=== PATIENT | female | born 1980 | race Caucasian/White ===

== ENCOUNTER 2019-06-01 11:07 | Emergency (ER) | payer MEDICARE ==
--- NOTE | 2019-06-01 12:59 | XRAY ---
Indication: Thrombus. Two-dimensional sonogram and color Doppler imaging of the major venous vessels of the right upper extremity was performed. Comparison: None There is occluding thrombus in the basilic vein above the elbow, site of PICC line insertion. No thrombus in the remaining visualized right internal jugular, subclavian, axillary, brachial, cephalic, ulnar, and radial veins. Impression: Occluding venous thrombus in the basilic vein. Comment: Preliminary report was given.
--- NOTE | 2019-06-01 13:07 | ERPHSYRPT ---
- History of Present Illness Source: patient Exam Limitations: no limitations Patient Subjective Stated Complaint: pt here to hav epic line looked at, her right arm is swollen and tender since friday, she is getting infusions for osteomylitis. Triage Nursing Assessment: pt alert, walked in, arm swollen with strong radial pulse, Physician History: pt. states that she gets IV vancomycin and zosyn via PICC line on her right arm - states she was diagnosed with osteomyelitis and PICC line was placed on [facility] - states right arm is going red, painful, is sore an swollen - denies fever Occurred: yesterday Method of Injury: unknown Quality: constant Severity of Pain-Max: moderate Severity of Pain-Current: moderate Extremities Pain Location: shoulder: right, elbow: right, forearm: right Modifying Factors: Improves With: nothing Associated Symptoms: none Allergies/Adverse Reactions: No Known Drug Allergies Allergy (Verified 06/01/19 11:15) Home Medications: Aspirin EC 325 mg [Ecotrin 325 MG] 325 mg PO DAILY 05/28/19 [History] Atorvastatin Calcium [Lipitor] 10 mg PO DAILY 05/28/19 [History] Carvedilol 3.125 mg [Coreg 3.125 MG] 3.125 mg PO BID 05/28/19 [History] Clopidogrel Bisulfate 75 mg [PLAVIX 75 MG Tablet] 75 mg PO DAILY 05/28/19 [History] Empagliflozin [Jardiance] 10 mg PO DAILY 05/28/19 [History] Evolocumab [Repatha Syringe] 140 mg SQ WEEKLY 05/28/19 [History] Furosemide 20 mg [Lasix 20 mg] 20 mg PO DAILY 05/28/19 [History] Gabapentin [Neurontin] 600 mg PO HS 05/28/19 [History] Insulin Glargine,Hum.rec.anlog [Basaglar Kwikpen U-100] 35 unit SQ DAILY [History] Insulin Lispro [Humalog] 200 unit SQ DAILY 05/28/19 [History] Levothyroxine Sodium 75 Mcg [Synthroid 75 Mcg] 75 mcg PO DAILY 05/28/19 [ History] Ranolazine [Ranolazine ER] 1,000 mg PO BID 05/28/19 [History] Sacubitril/Valsartan [Entresto 24 mg-26 mg Tablet] 1 each PO BID 05/28/19 [ History] Spironolactone 25 mg [Aldactone 25 MG] 25 mg PO DAILY 05/28/19 [History] Venlafaxine HCl ER 75 mg [Effexor XR 75 MG] 75 mg PO DAILY 05/28/19 [ History] Zolpidem Tartrate 5 mg [Ambien 5 MG Tablet] 5 mg PO HS 05/28/19 [History] Hx Tetanus, Diphtheria Vaccination/Date Given: No Hx Influenza Vaccination/Date Given: No Hx Pneumococcal Vaccination/Date Given: No Immunizations Up to Date: Yes - Review of Systems Constitutional: No Symptoms Eyes: No Symptoms Ears, Nose, & Throat: No Symptoms Respiratory: No Symptoms Cardiac: No Symptoms Abdominal/Gastrointestinal: No Symptoms Genitourinary Symptoms: No Symptoms Musculoskeletal: No Symptoms Skin: Rash Neurological: No Symptoms Psychological: No Symptoms Endocrine: No Symptoms Hematologic/Lymphatic: No Symptoms Immunological/Allergic: No Symptoms All Other Systems: Reviewed and Negative - Past Medical History Pertinent Past Medical History: Yes Neurological History: No Pertinent History ENT History: No Pertinent History Cardiac History: Coronary Artery Disease, High Cholesterol, Myocardial Infarction ([place]) Respiratory History: Asthma Endocrine Medical History: Diabetes Type II, Hypothyroidism Musculoskeletal History: No Pertinent History GI Medical History: No Pertinent History History: No Pertinent History Psycho-Social History: No Pertinent History Female Reproductive Disorders: No Pertinent History - Past Surgical History Past Surgical History: Yes Neuro Surgical History: No Pertinent History Cardiac: Cardiac Catheterization, Cardiac Stent Respiratory: No Pertinent History Gastrointestinal: Cholecystectomy Genitourinary: No Pertinent History Musculoskeletal: Orthopedic Surgery Female Surgical History: No Pertinent History Other Surgical History: tonsillectomy. Defibrillator placement - Social History Smoking Status: Current every day smoker How long have you smoked: 20 years Exposure to second hand smoke: Yes Alcohol Use: Socially Drug Use: none Patient Lives Alone: No Significant Family History: diabetes - Female History Hx Last Menstrual Period: last month Hx Now: No - Nursing Vital Signs Nursing Vital Signs: Pain Scale Pain Intensity 5 - Physical Exam General Appearance: no apparent distress Eyes, Ears, Nose, Throat Exam: normal ENT inspection Neck Exam: normal inspection Cardiovascular/Respiratory Exam: chest non-tender, normal breath sounds, regular rate/rhythm Abdominal Exam: non-tender, soft, no organomegaly Back Exam: normal inspection, normal range of motion Shoulder Exam: normal inspection, non-tender, no evidence of injury Elbow/Forearm Exam: pain, soft tissue tenderness, swelling Wrist Exam: normal inspection, non-tender, no evidence of injury Hand Exam: normal inspection, non-tender, no evidence of injury DTR - Upper Extremity Exam: bicep (R): 4+, bicep (L): 4+, tricep (R): 4+, tricep (L): 4+ Neuro/Tendon Exam: normal sensation Mental Status Exam: alert, oriented x 3, cooperative Skin Exam: pale SpO2 Interpretation: normal O2 Delivery: Room Air Ordered Tests: Active Orders 24 hr Category Date Time Status VENOUS UNILAT/LIMITED EXTREMIT [US] Stat Exams 06/01/19 11:41 Completed - Progress Progress Note: 06/01/19 13:05 PICC line area indurated, erythematous and tendr to palpation - UE USG +venous thrombosis of basilic vein - arm evaluated by radiology for PICC line palcement on left arm- advised difficult access - discussed with [facility]- pt to be transferred - Departure Departure Disposition: Transfer Clinical Impression: PICC line infiltration Condition: Stable Critical Care Time: No Referrals: MILY DAVID MD [Primary Care Provider] -
[2019-06-01 13:18] VITALS: BP 119/80; PULSE 84; O2SAT 95
== END 2019-06-01 13:20 | disposition short-term general hospital (02) ==
LOC: ED 11:07
DX: Z45.2 Encounter for adjustment and management of vascular access device (principal); M79.602 Pain in left arm; M79.89 Other specified soft tissue disorders; Z95.828 Presence of other vascular implants and grafts
CPT/HCPCS: 93971; 99284

== ENCOUNTER 2022-09-18 15:16 | Observation (INO) | payer MEDICARE ==
[2022-09-18] MEDS ORDERED: BENADRYL 50 MG/ML ONE (15:46)
[2022-09-18] MEDS ORDERED: BENADRYL 50 MG/ML IV ONE (15:46)
[2022-09-18] MEDS ORDERED: solu-MEDROL 125 MG, Sterile H2O 10 ml 2 ML IV ONE ×2 (16:30)
[2022-09-18] MEDS ORDERED: Sterile H2O 10 ml IJ ONE ×2 (16:38→23:43)
[2022-09-18] MEDS ORDERED: solu-MEDROL ONE ×2 (16:38→23:43)
--- NOTE | 2022-09-18 16:42 | ERPHSYRPT ---
- History of Present Illness Time Seen by Provider: 09/18/22 16:39 Source: patient Exam Limitations: no limitations Patient Subjective Stated Complaint: "I had a PICC line on the 6th for a bactera I have in my right foot. I'm on some antibiotic for 6 weeks daily at home. The medicine starts with an R. My sister hooks me up for my treatments but I've felt itchy all over and the PICC isn't flushing good. It is kind bloody too." Triage Nursing Assessment: Pt presents to ER due to issues with PICC that was placed at [facility] on 09/12/22. Pt states she is getting antibiotics in PICC daily at home and noticed it is not flushing good and now is itchy all over. Noted dried blood to dressing and various bruising around site. Pt is alert and oriented x 3. Respirations are easy. Denies nausea, vomiting, and diarrhea. Pt believes slight rash is occurring and thinks she's having some sort of reaction to her antibiotics. Is on antibiotics for infection in right foot. Pt denies any further complaints at this time. Physician History: Patient is a 42-year-old female currently on antibiotics for bilateral lower extremity osteomyelitis presents to our ED for evaluation of dysfunctional PICC line and itching. Patient states the PICC line was placed 6 days ago at [facility]. Patient is currently receiving daily and antibiotic infusions through the PICC line. Patient states the infusions are to occur for a period of 6 weeks. Infusions are being done at home by her sister. Patient states that the infusions have been taking progressively more time. She believes the PICC line may be partially occluded. Patient also experience generalized pruritus. Patient believes she may be experiencing some sort of allergic reaction to the antibiotic. The antibiotic patient is currently taking is Rocephin. no shortness of breath. No abdominal pain or tenderness. No nausea or vomiting. No wheezing. Patient denies a history of the same. She voices no other complaints or concerns at this time. Portions of this note were created with voice recognition technology. There may be grammatical, spelling, punctuation or sound alike errors Timing/Duration: today Severity: moderate Modifying Factors: Improves With: nothing Associated Symptoms: denies symptoms Allergies/Adverse Reactions: hydrocodone Adverse Reaction (Mild, Verified 09/18/22 15:34) Itching Home Medications: Aspirin EC 325 mg [Ecotrin 325 MG] 81 mg PO DAILY 05/28/19 [History] Atorvastatin Calcium [Lipitor] 10 mg PO DAILY 05/28/19 [History] Carvedilol 3.125 mg [Coreg 3.125 MG] 3.125 mg PO BID 05/28/19 [History] Clopidogrel Bisulfate [PLAVIX 75 MG Tablet] 75 mg PO DAILY 05/28/19 [History] Empagliflozin [Jardiance] 10 mg PO DAILY 05/28/19 [History] Evolocumab [Repatha Syringe] 140 mg SQ WEEKLY 05/28/19 [History] Insulin Lispro [Humalog] 8 unit SQ AC 05/28/19 [History] Levothyroxine Sodium 75 Mcg [Synthroid 75 Mcg] 75 mcg PO DAILY 05/28/19 [History] Ranolazine [Ranolazine ER] 500 mg PO BID 05/28/19 [History] Sacubitril/Valsartan [Entresto 24 mg-26 mg Tablet] 1 each PO BID 05/28/19 [History] Venlafaxine HCl ER 75 mg [Effexor XR 75 MG] 75 mg PO DAILY 05/28/19 [History] Omeprazole 20 mg PO BID 01/07/20 [History] Ondansetron ODT 4 MG [Zofran Odt 4 mg] 4 mg PO Q6H PRN PRN 01/28/20 [History] Bumetanide 2 tab PO DAILY 05/25/21 [History] Insulin Glargine,Hum.rec.anlog [Tutu Hobbs] 35 unit SQ DAILY 05/25/21 [History] Hx Tetanus, Diphtheria Vaccination/Date Given: Yes Hx Influenza Vaccination/Date Given: Yes Hx Pneumococcal Vaccination/Date Given: No Immunizations Up to Date: No Travel Risk - International Travel Have you traveled outside of the country in past 3 weeks: No - Coronavirus Screening Are you exhibiting any of the following symptoms?: No Close contact with a COVID-19 positive Pt in past 14-21 Days: No - Vaccine Status Have you recieved a Covid-19 vaccination: No - Review of Systems Constitutional: No Symptoms, No Fever, No Chills Eyes: No Symptoms Ears, Nose, & Throat: No Symptoms Respiratory: No Symptoms, No Cough, No Dyspnea Cardiac: No Symptoms, No Chest Pain, No Edema, No Syncope Abdominal/Gastrointestinal: No Symptoms, No Abdominal Pain, No Nausea, No Vomiting, No Diarrhea Genitourinary Symptoms: No Symptoms, No Dysuria Musculoskeletal: No Symptoms, No Back Pain, No Neck Pain Skin: No Symptoms, No Rash Neurological: No Symptoms, No Dizziness, No Focal Weakness, No Sensory Changes Psychological: No Symptoms Endocrine: No Symptoms Hematologic/Lymphatic: No Symptoms Immunological/Allergic: No Symptoms All Other Systems: Reviewed and Negative - Past Medical History Pertinent Past Medical History: Yes Neurological History: Peripheral Neuropathy, Other ENT History: No Pertinent History Cardiac History: Myocardial Infarction ([place]) Respiratory History: Asthma Endocrine Medical History: Diabetes Type II, Hypothyroidism Musculoskeletal History: Other GI Medical History: No Pertinent History History: No Pertinent History Psycho-Social History: No Pertinent History Female Reproductive Disorders: No Pertinent History Other Medical History: Hydrocephalus, not a candidate for a shunt. Had a "widowmaker" in Feb 25, 2015. Defibrillator placed. Osteomyelitis in the L foot and IV antibiotics, had wound care for 3-4 months back in 04/28. gastrophoresis - Past Surgical History Past Surgical History: Yes Neuro Surgical History: No Pertinent History Cardiac: Cardiac Catheterization, Cardiac Stent Respiratory: No Pertinent History Gastrointestinal: Cholecystectomy Genitourinary: No Pertinent History Musculoskeletal: Orthopedic Surgery Female Surgical History: No Pertinent History Other Surgical History: tonsillectomy. 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,3 TOES ON RIGHT FOOT AND 1/3 OF FOOT AMPUTATED - Social History Smoking Status: Current every day smoker How long have you smoked: 25 years Exposure to second hand smoke: No Alcohol Use: Socially Drug Use: none Patient Lives Alone: No Significant Family History: diabetes - Female History Hx Last Menstrual Period: 09/18/22 Hx Now: No - Nursing Vital Signs Nursing Vital Signs: Initial Vital Signs Pulse Rate 92 H 09/18/22 15:26 Respiratory Rate 16 09/18/22 15:26 Blood Pressure 123/86 09/18/22 15:26 O2 Sat by Pulse Oximetry 98 09/18/22 15:26 Pain Scale Pain Intensity 0 - Physical Exam General Appearance: no apparent distress, alert, other (Patient sitting up in bed. She is itching.) Eye Exam: PERRL/EOMI, eyes nml inspection Ears, Nose, Throat Exam: normal ENT inspection, TMs normal, pharynx normal, moist mucous membranes Neck Exam: normal inspection, non-tender, supple, full range of motion Respiratory Exam: normal breath sounds, lungs clear, respiratory distress, airway intact Cardiovascular Exam: regular rate/rhythm, normal heart sounds, normal peripheral pulses Gastrointestinal/Abdomen Exam: soft, normal bowel sounds, No tenderness, No mass Back Exam: normal inspection, normal range of motion, No CVA tenderness, No vertebral tenderness Extremity Exam: normal inspection, normal range of motion, pelvis stable, other (Right upper extremity PICC line) Neurologic Exam: alert, oriented x 3, cooperative, normal mood/affect, nml cerebellar function, nml station & gait, sensation nml, No motor deficits Skin Exam: normal color, warm, dry, No rash Lymphatic Exam: No adenopathy SpO2 Interpretation: normal SpO2: 98 O2 Delivery: Room Air - Course Nursing assessment & vital signs reviewed: Yes Ordered Tests: Active Orders 24 hr Category Date Time Status IV Insertion STAT Care 09/18/22 16:36 Active CBC W DIFF Stat Lab 09/18/22 16:30 Completed CMP Stat Lab 09/18/22 16:30 Completed Medication Summary Discontinued Medications Generic Name Dose Route Start Last Admin Trade Name Aamirq PRN Reason Stop Dose Admin Methylprednisolone Sodium 0 mg 09/18/22 16:30 09/18/22 16:39 Succinate 125 mg/ Sterile IV 09/18/22 16:31 125 mg Water 2 ml STAT ONE Administration Diphenhydramine HCl 50 mg 09/18/22 15:46 09/18/22 15:51 Diphenhydramine Hcl 50 Mg/Ml Vial IV 09/18/22 15:47 Not Given STAT ONE Diphenhydramine HCl Confirm 09/18/22 15:46 Diphenhydramine Hcl 50 Mg/Ml Vial Administered 09/18/22 15:47 Dose 50 mg .ROUTE .STK-MED ONE Methylprednisolone Sodium Succinate Confirm 09/18/22 16:38 Methylprednis Sod Succ 125 Mg/2 Ml Vial Administered 09/18/22 16:39 Dose 125 mg .ROUTE .STK-MED ONE Sterile Water Confirm 09/18/22 16:38 Water For Injection,Sterile 10 Ml Vial Administered 09/18/22 16:39 Dose 10 ml IJ .STK-MED ONE Lab/Rad Data: Laboratory Result Diagrams 09/18/22 16:30 09/18/22 16:30 Laboratory Results 09/18/22 09/18/22 09/18/22 Range/Units 16:40 16:30 16:30 WBC 7.5 (4.0-10.5) x10^3/uL RBC 3.85 L (4.1-5.4) x10^6/uL Hgb 9.2 L (12.0-16.0) g/dL Hct 31.0 L (35-47) % MCV 80.5 (78-100) fL MCH 23.9 L (26-32) pg MCHC 29.7 L (32-36) g/dL RDW 17.4 H (11.5-14.0) % Plt Count 237 (150-450) x10^3/uL MPV 11.0 (7.5-11.0) fL Gran % 70.0 H (36.0-66.0) % Immature Gran % (Auto) 0.5 H (0.00-0.4) % Nucleat RBC Rel Count 0.3 H (0.00-0.1) % Eos # (Auto) 0.14 (0-0.5) x10^3/uL Immature Gran # (Auto) 0.04 H (0.00-0.03) x10^3u/L Absolute Lymphs (auto) 1.27 (1.0-4.6) x10^3/uL Absolute Monos (auto) 0.75 (0.0-1.3) x10^3/uL Absolute Nucleated RBC 0.02 H (0.00-0.01) x10^3u/L Lymphocytes % 16.9 L (24.0-44.0) % Monocytes % 10.0 (0.0-12.0) % Eosinophils % 1.9 (0.00-5.0) % Basophils % 0.7 (0.0-0.4) % Absolute Granulocytes 5.28 (1.4-6.9) x10^3/uL Basophils # 0.05 (0-0.4) x10^3/uL Sodium 137 (137-145) mmol/L Potassium 3.6 (3.5-5.1) mmol/L Chloride 101 (98-107) mmol/L Carbon Dioxide 27 (22-30) mmol/L Anion Gap 12.2 (5-15) MEQ/L BUN 24 H (7-17) mg/dL Creatinine 1.44 H (0.52-1.04) mg/dL Estimated GFR 42.2 ML/MIN Glucose 160 H (74-106) mg/dL Calcium 8.3 L (8.4-10.2) mg/dL Total Bilirubin 1.00 (0.2-1.3) mg/dL AST 31 (14-36) U/L ALT 28 (0-35) U/L Alkaline Phosphatase 228 H (38-126) U/L Serum Total Protein 6.4 (6.3-8.2) g/dL Albumin 3.2 L (3.5-5.0) g/dL Influenza Type A Ag NEGATIVE (NEGATIVE) Influenza Type B Ag NEGATIVE (NEGATIVE) RSV (PCR) NEGATIVE (NEGATIVE) SARS-CoV-2 (PCR) NEGATIVE (NEGATIVE) - Progress Progress: improved Progress Note: Case discussed with Dr. Rodney who accepts admission to observation. Patient will be admitted to remove dysfunctional PICC line and replace PICC catheter. PICC line needed to treat lower extremity osteomyelitis. Plan of care discussed with patient. She agrees to admission [facility] for further evaluation and treatment. Portions of this note were created with voice recognition technology. There may be grammatical, spelling, punctuation or sound alike errors 09/18/22 16:35 Laboratory work-up completed. CBC CMP ordered. CBC reveals a hemoglobin of 9.2. Normocytic anemia. CMP reveals a BUN and creatinine of 24 and 1.44. Otherwise no significant findings. COVID test negative. Patient received Benadryl and steroid for pruritus. Patient states she feels somewhat improved. Patient received a dose of Pepcid prior to going up to the floor. Plan is to replace PICC line tomorrow. Possibly change antibiotic as patient's pruritus may be due to her antibiotic. 42-year-old female history of diabetes bilateral lower extremity osteomyelitis presents currently on daily infusions of Rocephin to treat foot osteomyelitis. PICC line has malfunction. Patient not experiencing the pruritus. Patient's problem is acute. Patient's problem is moderate. Symptoms are acute and complicated with systemic manifestations. Symptoms are new with uncertain prognosis. No critical care time. Complexity of data reviewed and analyzed is moderate. Patient served as an independent historian. Testing ordered. Testing reviewed and analyzed by Dr. Bentley. Management discussed with Dr. David patient's primary care doctor who advised admission. Patient agreed to admission to [facility] for further evaluation and treatment. Portions of this note were created with voice recognition technology. There may be grammatical, spelling, punctuation or sound alike errors 09/18/22 18:[address] Edmar Will see patient in: hospital (observation) Counseled pt/family regarding: lab results, diagnosis, rad results - Departure Departure Disposition: Observation Clinical Impression: Occluded PICC line, Pruritus Condition: Stable Critical Care Time: No Referrals: MILY DAVID MD [Primary Care Provider] - Follow up/PCP as directed Additional Instructions: Discharge/Care Plan TUTUSEPTEMBER JERRICA was seen on 09/18/22 in the Emergency Room. The patient was counseled regarding Diagnosis,Lab results, Imaging studies, need for follow up and when to return to the Emergency Room. Prescriptions given: Discharge Note I have spoken with the patient and/or caregivers. I have explained the patient's condition, diagnosis and treatment plan based on the information available to me at this time. I have answered the patient's and/or caregiver's questions and addressed any concerns. The patient and/or caregivers have as good understanding of the patient's diagnosis, condition and treatment plan as can be expected at this point. The vital signs have been stable. The patient's condition is stable and appropriate for discharge from the emergency department. The patient will pursue further outpatient evaluation with the primary care physician or other designated or consulting physician as outlined in the discharge instructions. The patient and/or caregivers are agreeable to this plan of care and follow-up instructions have been explained in detail. The patient and/or caregivers have received these instruction. The patient/and or caregivers are aware that any significant change in condition or worsening of symptoms should prompt an immediate return to this or the closest emergency department or call 911.
[2022-09-18 17:05] LABS: Absolute Neutrophil Ct (ANC) 5.28 x10^3/uL (1.4-6.9); BASOPHIL % 0.7 % (0.0-0.4); Basophil (Absolute #) 0.05 x10^3/uL (0-0.4); Eosinophil % 1.9 % (0.00-5.0); Eosinophil (Absolute #) 0.14 x10^3/uL (0-0.5); Hemoglobin 9.2 g/dL (12.0-16.0); IMMATURE GRAN # 0.04 x10^3u/L (0.00-0.03); IMMATURE GRAN % 0.5 % (0.00-0.4); Lymphocyte (Absolute #) 1.27 x10^3/uL (1.0-4.6); Lymphocytes % 16.9 % (24.0-44.0); Mean Cell Volume 80.5 fL (78-100); Mean Corpuscular Hemoglobin 23.9 pg (26-32); Mean Corpuscular Hgb Concent. 29.7 g/dL (32-36); Monocyte (Absolute #) 0.75 x10^3/uL (0.0-1.3); NUCLEATED RBC # 0.02 x10^3u/L (0.00-0.01); NUCLEATED RBC % 0.3 % (0.00-0.1); Platelet Count 237 x10^3/uL (150-450); Red Blood Count 3.85 x10^6/uL (4.1-5.4); Red Cell Distribution Width 17.4 % (11.5-14.0); White Blood Count 7.5 x10^3/uL (4.0-10.5)
[2022-09-18 17:39] LABS: ALBUMIN 3.2 g/dL (3.5-5.0); ANION GAP 12.2 MEQ/L (5-15); Calcium 8.3 mg/dL (8.4-10.2); Creatinine 1 1.44 mg/dL (0.52-1.04); EST GLOMERULAR FILTRATION RATE 42.2 ML/MIN; Potassium 3.6 mmol/L (3.5-5.1); Total Protein 6.4 g/dL (6.3-8.2)
[2022-09-18 17:46] LABS: INFLUENZA A NEGATIVE (NEGATIVE); INFLUENZA B NEGATIVE (NEGATIVE); RESPIRATORY SYNCTIAL VIRUS NEGATIVE (NEGATIVE); SARS-CoV-2 Xpert Express NEGATIVE (NEGATIVE)
[2022-09-18] MEDS ORDERED: Pepcid 20 MG VIAL IV STA (18:05)
[2022-09-18] MEDS ORDERED: Pepcid 20 MG VIAL IV ONE (18:07)
[2022-09-18] MEDS: Ranexa 500 MG PO SCH (22:01)
[2022-09-18] MEDS: Coreg 3.125 MG PO SCH (22:01)
[2022-09-18] MEDS: Protonix 40MG Tablet PO SCH (22:01)
[2022-09-18] MEDS: solu-MEDROL 60 MG, Sterile H2O 10 ml 2 ML IV SCH ×2 (23:45)
[2022-09-19 05:27] LABS: Absolute Neutrophil Ct (ANC) 5.54 x10^3/uL (1.4-6.9); BASOPHIL % 0.2 % (0.0-0.4); Basophil (Absolute #) 0.01 x10^3/uL (0-0.4); Eosinophil (Absolute #) 0 x10^3/uL (0-0.5); Hematocrit 33.9 % (35-47); Hemoglobin 9.8 g/dL (12.0-16.0); IMMATURE GRAN # 0.03 x10^3u/L (0.00-0.03); IMMATURE GRAN % 0.5 % (0.00-0.4); Lymphocyte (Absolute #) 0.66 x10^3/uL (1.0-4.6); Lymphocytes % 10.4 % (24.0-44.0); Mean Cell Volume 81.3 fL (78-100); Mean Corpuscular Hemoglobin 23.5 pg (26-32); Mean Corpuscular Hgb Concent. 28.9 g/dL (32-36); Mean Platelet Volume 10.3 fL (7.5-11.0); Monocyte (Absolute #) 0.08 x10^3/uL (0.0-1.3); Monocytes % 1.3 % (0.0-12.0); Neutrophil % 87.6 % (36.0-66.0); Platelet Count 195 x10^3/uL (150-450); Red Blood Count 4.17 x10^6/uL (4.1-5.4); Red Cell Distribution Width 17.5 % (11.5-14.0); White Blood Count 6.3 x10^3/uL (4.0-10.5)
[2022-09-19 05:47] LABS: ANION GAP 13.8 MEQ/L (5-15); Calcium 8.3 mg/dL (8.4-10.2); Creatinine 1 1.07 mg/dL (0.52-1.04); EST GLOMERULAR FILTRATION RATE 59.5 ML/MIN; Potassium 3.8 mmol/L (3.5-5.1); Total Protein 6.1 g/dL (6.3-8.2)
[2022-09-19] MEDS ORDERED: Sterile H2O 10 ml IJ ONE (06:53)
[2022-09-19] MEDS ORDERED: solu-MEDROL ONE (06:53)
[2022-09-19] MEDS: solu-MEDROL 60 MG, Sterile H2O 10 ml 2 ML IV SCH ×6 (06:59→18:26)
[2022-09-19 08:15] LABS: Slide Review 1 YES
[2022-09-19] MEDS: HUMALOG SQ SCH ×3 (08:52→17:09)
[2022-09-19] MEDS: Lantus Insulin SQ SCH (08:52)
[2022-09-19] MEDS: Protonix 40MG Tablet PO SCH ×2 (09:29→20:35)
[2022-09-19] MEDS: Ranexa 500 MG PO SCH ×2 (09:30→20:36)
[2022-09-19] MEDS: Coreg 3.125 MG PO SCH ×2 (09:30→20:35)
[2022-09-19] MEDS ORDERED: INSULIN GLARGINE HUM REC ANLOG 300 UNIT/ML SQ SCH (10:00)
[2022-09-19] MEDS ORDERED: INSUL SQ SCH (10:00)
[2022-09-19] MEDS ORDERED: [UNRECOGNIZED DRUG - OTHER] SQ SCH (10:00)
--- NOTE | 2022-09-19 10:18 | PCM.HP ---
History of Present Illness - Chief Complaint Chief Complaint: PICC line is clogged History of Present Illness: is a 42 year old female currently on antibiotics for bilateral lower extremity osteomyelitis presents to our ED for evaluation of dysfunctional PICC line and itching. Patient states the PICC line was placed 6 days ago at [facility]. Patient is currently receiving daily and antibiotic infusions through the PICC line. Patient states the infusions are to occur for a period of 6 weeks. Infusions are being done at home by her sister. Patient states that the infusions have been taking progressively more time. She believes the PICC line may be partially occluded. Patient also experience generalized pruritus. Patient believes she may be experiencing some sort of allergic reaction to the antibiotic. The antibiotic patient is currently taking is Rocephin. no s hortness of breath. No abdominal pain or tenderness. No nausea or vomiting. No wheezing. Patient denies a history of the same. She voices no other complaints or concerns at this time. - Review of Systems Constitutional: No Fever, No Chills Eyes: No Symptoms Ears, Nose, & Throat: No Symptoms Respiratory: No Cough, No Short Of Breath Cardiac: No Chest Pain, No Edema, No Syncope Abdominal/Gastrointestinal: No Abdominal Pain, No Nausea, No Vomiting, No Diarrhea Genitourinary Symptoms: No Dysuria Musculoskeletal: No Back Pain, No Neck Pain Skin: No Rash Neurological: No Dizziness, No Focal Weakness, No Sensory Changes Psychological: No Symptoms Endocrine: No Symptoms Hematologic/Lymphatic: No Symptoms Immunological/Allergic: No Symptoms Medications & Allergies Home Medications: Home Medication List Aspirin EC 325 mg [Ecotrin 325 MG] 81 mg PO DAILY 05/28/19 [History Confirmed 09/18/22] Atorvastatin Calcium [Lipitor] 10 mg PO DAILY 05/28/19 [History Confirmed 09/18/22] Carvedilol 3.125 mg [Coreg 3.125 MG] 3.125 mg PO BID 05/28/19 [History Confirmed 09/18/22] Clopidogrel Bisulfate [PLAVIX 75 MG Tablet] 75 mg PO DAILY 05/28/19 [History Confirmed 09/18/22] Empagliflozin [Jardiance] 10 mg PO DAILY 05/28/19 [History Confirmed 09/18/22] Evolocumab [Repatha Syringe] 140 mg SQ WEEKLY 05/28/19 [History Confirmed 09/18/22] Insulin Lispro [Humalog] 8 unit SQ AC 05/28/19 [History Confirmed 09/18/22] Levothyroxine Sodium 75 Mcg [Synthroid 75 Mcg] 75 mcg PO DAILY 05/28/19 [History Confirmed 09/18/22] Ranolazine [Ranolazine ER] 500 mg PO BID 05/28/19 [History Confirmed 09/18/22] Sacubitril/Valsartan [Entresto 24 mg-26 mg Tablet] 1 each PO BID 05/28/19 [History Confirmed 09/18/22] Venlafaxine HCl ER 75 mg [Effexor XR 75 MG] 75 mg PO DAILY 05/28/19 [Hist ory Confirmed 09/18/22] Omeprazole 20 mg PO BID 01/07/20 [History Confirmed 09/18/22] Ondansetron ODT 4 MG [Zofran Odt 4 mg] 4 mg PO Q6H PRN PRN 01/28/20 [History Confirmed 09/18/22] Bumetanide 1 tab PO DAILY 05/25/21 [History Confirmed 09/18/22] Insulin Glargine,Hum.rec.anlog [Tutu Hobbs] 35 unit SQ DAILY 05/25/21 [History Confirmed 09/18/22] Allergies/Adverse Reactions: Allergies Allergy/AdvReac Type Severity Reaction Status Date / Time ceftriaxone [From Rocephin] Allergy Verified 09/18/22 18:08 hydrocodone AdvReac Mild Itching Verified 09/18/22 15:34 - Past Medical History Past Medical History: Yes Neurological History: Peripheral Neuropathy, Other ENT History: No Pertinent History Cardiac History: Myocardial Infarction (AR) Respiratory History: Asthma Endocrine Medical History: Diabetes Type II, Hypothyroidism Musculoskelatal History: Other GI Medical History: No Pertinent History History: No Pertinent History Pyscho-Social History: No Pertinent History Reproductive Disorders: No Pertinent History Comment: Hydrocephalus, not a candidate for a shunt. Had a "widowmaker" in Feb 25, 2015. Defibrillator placed. Osteomyelitis in the L foot and IV antibiotics, had wound care for 3-4 months back in 04/28. gastrophoresis - Female History Hx Last Menstrual Period: 09/18/22 Are you now?: No - Past Surgical History Past Surgical History: Yes Neuro Surgical History: No Pertinent History Cardiac History: Cardiac Catheterization, Cardiac Stent Respiratory Surgery: No Pertinent History GI Surgical History: Cholecystectomy Genitourinary Surgical Hx: No Pertinent History Musculskeletal Surgical Hx: Orthopedic Surgery Female Surgical History: No Pertinent History Other Surgical History: tonsillectomy. 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,3 TOES ON RIGHT FOOT AND 1/3 OF FOOT AMPUTATED - Social History Smoking Status: Current every day smoker How long have you smoked: 25 years Exposure to second hand smoke: No Alcohol: None Drug Use: none Significant Family History: diabetes - Physical Exam Vital Signs: Vital Signs - 24 hr Temp Pulse Resp BP Pulse Ox 09/19/22 07:54 96.6 F 70 16 129/78 97 09/19/22 03:57 97.6 F 80 18 132/94 99 09/19/22 00:00 97.6 F 72 18 128/78 96 09/18/22 22:02 96 H 133/79 98 09/18/22 18:12 98 09/18/22 17:53 96 H 16 133/79 96 09/18/22 15:26 92 H 16 123/86 98 General Appearance: no apparent distress, alert Neurologic Exam: alert, oriented x 3, cooperative, normal mood/affect, nml cerebellar function, nml station & gait, sensation nml, No motor deficits Eye Exam: PERRL/EOMI, eyes nml inspection Ears, Nose, Throat Exam: normal ENT inspection, TMs normal, pharynx normal, moist mucous membranes Neck Exam: normal inspection, non-tender, supple, full range of motion Respiratory Exam: normal breath sounds, lungs clear, No respiratory distress Cardiovascular Exam: regular rate/rhythm, normal heart sounds, normal peripheral pulses Gastrointestinal/Abdomen Exam: soft, normal bowel sounds, No tenderness, No mass Back Exam: normal inspection, normal range of motion, No CVA tenderness, No vertebral tenderness Extremity Exam: normal inspection, normal range of motion, pelvis stable Skin Exam: normal color, warm, dry, No rash Lymphatic Exam: No adenopathy Results - Labs Lab/Micro Results: Lab Results-Last 24 Hours 04/12/23 04/12/23 04/12/23 Range/Units 16:30 16:30 16:40 WBC 7.5 (4.0-10.5) x10^3/uL RBC 3.85 L (4.1-5.4) x10^6/uL Hgb 9.2 L (12.0-16.0) g/dL Hct 31.0 L (35-47) % MCV 80.5 (78-100) fL MCH 23.9 L (26-32) pg MCHC 29.7 L (32-36) g/dL RDW 17.4 H (11.5-14.0) % Plt Count 237 (150-450) x10^3/uL MPV 11.0 (7.5-11.0) fL Gran % 70.0 H (36.0-66.0) % Immature Gran % (Auto) 0.5 H (0.00-0.4) % Nucleat RBC Rel Count 0.3 H (0.00-0.1) % Eos # (Auto) 0.14 (0-0.5) x10^3/uL Immature Gran # (Auto) 0.04 H (0.00-0.03) x10^3u/L Absolute Lymphs (auto) 1.27 (1.0-4.6) x10^3/uL Absolute Monos (auto) 0.75 (0.0-1.3) x10^3/uL Absolute Nucleated RBC 0.02 H (0.00-0.01) x10^3u/L Lymphocytes % 16.9 L (24.0-44.0) % Monocytes % 10.0 (0.0-12.0) % Eosinophils % 1.9 (0.00-5.0) % Basophils % 0.7 (0.0-0.4) % Absolute Granulocytes 5.28 (1.4-6.9) x10^3/uL Basophils # 0.05 (0-0.4) x10^3/uL Sodium 137 (137-145) mmol/L Potassium 3.6 (3.5-5.1) mmol/L Chloride 101 (98-107) mmol/L Carbon Dioxide 27 (22-30) mmol/L Anion Gap 12.2 (5-15) MEQ/L BUN 24 H (7-17) mg/dL Creatinine 1.44 H (0.52-1.04) mg/dL Estimated GFR 42.2 ML/MIN Glucose 160 H (74-106) mg/dL POC Glucometer (74 to 106) mg/dL Calcium 8.3 L (8.4-10.2) mg/dL Total Bilirubin 1.00 (0.2-1.3) mg/dL AST 31 (14-36) U/L ALT 28 (0-35) U/L Alkaline Phosphatase 228 H (38-126) U/L Serum Total Protein 6.4 (6.3-8.2) g/dL Albumin 3.2 L (3.5-5.0) g/dL Influenza Type A Ag NEGATIVE (NEGATIVE) Influenza Type B Ag NEGATIVE (NEGATIVE) RSV (PCR) NEGATIVE (NEGATIVE) SARS-CoV-2 (PCR) NEGATIVE (NEGATIVE) Slides for Path Review 09/18/22 09/19/22 09/19/22 Range/Units 21:44 04:50 04:50 WBC 6.3 (4.0-10.5) x10^3/uL RBC 4.17 (4.1-5.4) x10^6/uL Hgb 9.8 L (12.0-16.0) g/dL Hct 33.9 L (35-47) % MCV 81.3 (78-100) fL MCH 23.5 L (26-32) pg MCHC 28.9 L (32-36) g/dL RDW 17.5 H (11.5-14.0) % Plt Count 195 (150-450) x10^3/uL MPV 10.3 (7.5-11.0) fL Gran % 87.6 H (36.0-66.0) % Immature Gran % (Auto) 0.5 H (0.00-0.4) % Nucleat RBC Rel Count 0.0 (0.00-0.1) % Eos # (Auto) 0 (0-0.5) x10^3/uL Immature Gran # (Auto) 0.03 (0.00-0.03) x10^3u/L Absolute Lymphs (auto) 0.66 L (1.0-4.6) x10^3/uL Absolute Monos (auto) 0.08 (0.0-1.3) x10^3/uL Absolute Nucleated RBC 0.00 (0.00-0.01) x10^3u/L Lymphocytes % 10.4 L (24.0-44.0) % Monocytes % 1.3 (0.0-12.0) % Eosinophils % 0.0 (0.00-5.0) % Basophils % 0.2 (0.0-0.4) % Absolute Granulocytes 5.54 (1.4-6.9) x10^3/uL Basophils # 0.01 (0-0.4) x10^3/uL Sodium 134 L (137-145) mmol/L Potassium 3.8 (3.5-5.1) mmol/L Chloride 103 (98-107) mmol/L Carbon Dioxide 22 (22-30) mmol/L Anion Gap 13.8 (5-15) MEQ/L BUN 26 H (7-17) mg/dL Creatinine 1.07 H (0.52-1.04) mg/dL Estimated GFR 59.5 ML/MIN Glucose 222 H (74-106) mg/dL POC Glucometer 192 H (74 to 106) mg/dL Calcium 8.3 L (8.4-10.2) mg/dL Total Bilirubin 1.00 (0.2-1.3) mg/dL AST 24 (14-36) U/L ALT 27 (0-35) U/L Alkaline Phosphatase 231 H (38-126) U/L Serum Total Protein 6.1 L (6.3-8.2) g/dL Albumin 3.0 L (3.5-5.0) g/dL Influenza Type A Ag (NEGATIVE) Influenza Type B Ag (NEGATIVE) RSV (PCR) (NEGATIVE) SARS-CoV-2 (PCR) (NEGATIVE) Slides for Path Review YES 09/19/22 Range/Units 07:26 WBC (4.0-10.5) x10^3/uL RBC (4.1-5.4) x10^6/uL Hgb (12.0-16.0) g/dL Hct (35-47) % MCV (78-100) fL MCH (26-32) pg MCHC (32-36) g/dL RDW (11.5-14.0) % Plt Count (150-450) x10^3/uL MPV (7.5-11.0) fL Gran % (36.0-66.0) % Immature Gran % (Auto) (0.00-0.4) % Nucleat RBC Rel Count (0.00-0.1) % Eos # (Auto) (0-0.5) x10^3/uL Immature Gran # (Auto) (0.00-0.03) x10^3u/L Absolute Lymphs (auto) (1.0-4.6) x10^3/uL Absolute Monos (auto) (0.0-1.3) x10^3/uL Absolute Nucleated RBC (0.00-0.01) x10^3u/L Lymphocytes % (24.0-44.0) % Monocytes % (0.0-12.0) % Eosinophils % (0.00-5.0) % Basophils % (0.0-0.4) % Absolute Granulocytes (1.4-6.9) x10^3/uL Basophils # (0-0.4) x10^3/uL Sodium (137-145) mmol/L Potassium (3.5-5.1) mmol/L Chloride (98-107) mmol/L Carbon Dioxide (22-30) mmol/L Anion Gap (5-15) MEQ/L BUN (7-17) mg/dL Creatinine (0.52-1.04) mg/dL Estimated GFR ML/MIN Glucose (74-106) mg/dL POC Glucometer TNP (74 to 106) mg/dL Calcium (8.4-10.2) mg/dL Total Bilirubin (0.2-1.3) mg/dL AST (14-36) U/L ALT (0-35) U/L Alkaline Phosphatase (38-126) U/L Serum Total Protein (6.3-8.2) g/dL Albumin (3.5-5.0) g/dL Influenza Type A Ag (NEGATIVE) Influenza Type B Ag (NEGATIVE) RSV (PCR) (NEGATIVE) SARS-CoV-2 (PCR) (NEGATIVE) Slides for Path Review - Other Procedures and Tests Respiratory Therapy 09/18/22 22:21 Smoking Cessation Education ONCE Assessment/Plan (1) Diabetic foot infection Current Visit: Yes Status: Acute Assessment & Plan: Chief Complaint Diagnosis Malfunctioning PICC line, pruritus Allergies Allergy/AdvReac Type Severity Reaction Status Date / Time ceftriaxone [From Rocephin] Allergy Verified 09/18/22 18:08 hydrocodone AdvReac Mild Itching Verified 09/18/22 15:34 Vital Signs (Last 24 hours) Temp Pulse Resp BP Pulse Ox 09/19/22 07:54 96.6 F 70 16 129/78 97 09/19/22 03:57 97.6 F 80 18 132/94 99 09/19/22 00:00 97.6 F 72 18 128/78 96 09/18/22 22:02 96 H 133/79 98 09/18/22 18:12 98 09/18/22 17:53 96 H 16 133/79 96 09/18/22 15:26 92 H 16 123/86 98 Current Medications Generic Name Dose Route Start Last Admin Trade Name Freq PRN Reason Stop Dose Admin Carvedilol 3.125 mg 09/18/22 22:00 09/19/22 09:30 Carvedilol 3.125 Mg Tablet PO 10/18/22 21:59 3.125 mg BID FER Administration Methylprednisolone Sodium 0 mg 09/19/22 00:00 09/19/22 06:59 Succinate 60 mg/ Sterile Water IV 10/19/22 00:00 60 mg 2 ml Q6HT FER Administration Diphenhydramine HCl 50 mg 09/18/22 18:22 Diphenhydramine Hcl 50 Mg/Ml Vial IV 10/18/22 18:21 Q6H PRN PRN ITCHING Insulin Glargine 28 unit 09/19/22 09:00 09/19/22 08:52 Insulin Glargine 1 Unit SQ 10/19/22 08:59 28 unit AMINSULIN FER Administration Insulin Human Lispro 8 unit 09/19/22 07:30 09/19/22 08:52 Insulin Lispro 1 Unit SQ 10/19/22 07:29 8 unit AC FER Administration Pantoprazole Sodium 40 mg 09/18/22 22:00 09/19/22 09:29 Protonix (Pantoprazole) 40 Mg Tablet PO 10/18/22 21:59 40 mg BID FER Administration Ranolazine 500 mg 09/18/22 22:00 09/19/22 09:30 Ranolazine 500 Mg Tab.Sr.12h PO 10/18/22 21:59 500 mg BID FER Administration Discontinued Medications Generic Name Dose Route Start Last Admin Trade Name Jimmy PRN Reason Stop Dose Admin Methylprednisolone Sodium 0 mg 09/18/22 16:30 09/18/22 16:39 Succinate 125 mg/ Sterile IV 09/18/22 16:31 125 mg Water 2 ml STAT ONE Administration Diphenhydramine HCl 50 mg 09/18/22 15:46 09/18/22 15:51 Diphenhydramine Hcl 50 Mg/Ml Vial IV 09/18/22 15:47 Not Given STAT ONE Diphenhydramine HCl Confirm 09/18/22 15:46 Diphenhydramine Hcl 50 Mg/Ml Vial Administered 09/18/22 15:47 Dose 50 mg .ROUTE .STK-MED ONE Famotidine 20 mg 09/18/22 18:05 09/18/22 18:07 Famotidine 20 Mg/1 Vial IV 09/18/22 18:06 20 mg ONCE STA Administration Famotidine Confirm 09/18/22 18:07 Famotidine 20 Mg/1 Vial Administered 09/18/22 18:08 Dose 20 mg IV .STK-MED ONE Methylprednisolone Sodium Succinate Confirm 09/18/22 16:38 Methylprednis Sod Succ 125 Mg/2 Ml Vial Administered 09/18/22 16:39 Dose 125 mg .ROUTE .STK-MED ONE Methylprednisolone Sodium Succinate Confirm 09/18/22 23:43 Methylprednis Sod Succ 125 Mg/2 Ml Vial Administered 09/18/22 23:44 Dose 125 mg .ROUTE .STK-MED ONE Methylprednisolone Sodium Succinate Confirm 09/19/22 06:53 Methylprednis Sod Succ 125 Mg/2 Ml Vial Administered 09/19/22 06:54 Dose 125 mg .ROUTE .STK-MED ONE Sterile Water Confirm 09/18/22 16:38 Water For Injection,Sterile 10 Ml Vial Administered 09/18/22 16:39 Dose 10 ml IJ .STK-MED ONE Sterile Water Confirm 09/18/22 23:43 Water For Injection,Sterile 10 Ml Vial Administered 09/18/22 23:44 Dose 10 ml IJ .STK-MED ONE Sterile Water Confirm 09/19/22 06:53 Water For Injection,Sterile 10 Ml Vial Administered 09/19/22 06:54 Dose 10 ml IJ .STK-MED ONE Intake & Output (Last 24 hours) 09/16/22 09/17/22 09/18/22 09/19/22 11:59 11:59 11:59 11:59 Intake Total 640 Balance 640 Weight 128.9 kg Laboratory Results (Last 24 hours) 09/19/22 09/19/22 09/19/22 07:26 04:50 04:50 WBC 6.3 RBC 4.17 Hgb 9.8 L Hct 33.9 L MCV 81.3 MCH 23.5 L MCHC 28.9 L RDW 17.5 H Plt Count 195 MPV 10.3 Gran % 87.6 H Immature Gran % (Auto) 0.5 H Nucleat RBC Rel Count 0.0 Eos # (Auto) 0 Immature Gran # (Auto) 0.03 Absolute Lymphs (auto) 0.66 L Absolute Monos (auto) 0.08 Absolute Nucleated RBC 0.00 Lymphocytes % 10.4 L Monocytes % 1.3 Eosinophils % 0.0 Basophils % 0.2 Absolute Granulocytes 5.54 Basophils # 0.01 Sodium 134 L Potassium 3.8 Chloride 103 Carbon Dioxide 22 Anion Gap 13.8 BUN 26 H Creatinine 1.07 H Estimated GFR 59.5 Glucose 222 H POC Glucometer TNP Calcium 8.3 L Total Bilirubin 1.00 AST 24 ALT 27 Alkaline Phosphatase 231 H Serum Total Protein 6.1 L Albumin 3.0 L Influenza Type A Ag Influenza Type B Ag RSV (PCR) SARS-CoV-2 (PCR) Slides for Path Review YES 09/18/22 09/18/22 09/18/22 21:44 16:40 16:30 WBC RBC Hgb Hct MCV MCH MCHC RDW Plt Count MPV Gran % Immature Gran % (Auto) Nucleat RBC Rel Count Eos # (Auto) Immature Gran # (Auto) Absolute Lymphs (auto) Absolute Monos (auto) Absolute Nucleated RBC Lymphocytes % Monocytes % Eosinophils % Basophils % Absolute Granulocytes Basophils # Sodium 137 Potassium 3.6 Chloride 101 Carbon Dioxide 27 Anion Gap 12.2 BUN 24 H Creatinine 1.44 H Estimated GFR 42.2 Glucose 160 H POC Glucometer 192 H Calcium 8.3 L Total Bilirubin 1.00 AST 31 ALT 28 Alkaline Phosphatase 228 H Serum Total Protein 6.4 Albumin 3.2 L Influenza Type A Ag NEGATIVE Influenza Type B Ag NEGATIVE RSV (PCR) NEGATIVE SARS-CoV-2 (PCR) NEGATIVE Slides for Path Review 09/18/22 16:30 WBC 7.5 RBC 3.85 L Hgb 9.2 L Hct 31.0 L MCV 80.5 MCH 23.9 L MCHC 29.7 L RDW 17.4 H Plt Count 237 MPV 11.0 Gran % 70.0 H Immature Gran % (Auto) 0.5 H Nucleat RBC Rel Count 0.3 H Eos # (Auto) 0.14 Immature Gran # (Auto) 0.04 H Absolute Lymphs (auto) 1.27 Absolute Monos (auto) 0.75 Absolute Nucleated RBC 0.02 H Lymphocytes % 16.9 L Monocytes % 10.0 Eosinophils % 1.9 Basophils % 0.7 Absolute Granulocytes 5.28 Basophils # 0.05 Sodium Potassium Chloride Carbon Dioxide Anion Gap BUN Creatinine Estimated GFR Glucose POC Glucometer Calcium Total Bilirubin AST ALT Alkaline Phosphatase Serum Total Protein Albumin Influenza Type A Ag Influenza Type B Ag RSV (PCR) SARS-CoV-2 (PCR) Slides for Path Review Orders (Last 24 hours) Category Date Time Status Up With Assistance ROUTINE Activity 09/18/22 18:22 Active Code Status Order ROUTINE Care 09/18/22 18:22 Active IV Care Q6H Care 09/18/22 18:22 Active IV Insertion STAT Care 09/18/22 16:36 Completed Neuro Checks Q4H Care 09/18/22 18:[address] in Observation ROUTINE Care 09/18/22 18:22 Active Telemetry q6h Care 09/18/22 18:22 Completed Cardio-Pulmonary Rehab .as ordered Cons 09/18/22 18:37 Active Consistent Carbohydrate Diet 1800 Calorie Diet 09/19/22 Breakfast Active CBC W DIFF AM.LAB Lab 09/19/22 04:50 Completed CBC W DIFF Stat Lab 09/18/22 16:30 Completed CMP AM.LAB Lab 09/19/22 04:50 Completed CMP Stat Lab 09/18/22 16:30 Completed COVID/FLU/RSV Panel Stat Lab 09/18/22 16:40 Completed POCT GLUCOSE Stat Lab 09/18/22 21:44 Completed POCT GLUCOSE Stat Lab 09/19/22 07:26 Completed Carvedilol 3.125 mg [Coreg 3.125 MG] Med 09/18/22 22:00 Active 3.125 mg PO BID Diphenhydramine HCl 50 mg/ml [Benadryl 50 mg/ml] Med 09/18/22 15:46 D iscontinued 0 mg .ROUTE .STK-MED ONE Diphenhydramine HCl 50 mg/ml [Benadryl 50 mg/ml] Med 09/18/22 18:22 Active 50 mg IV Q6H PRN PRN Diphenhydramine HCl 50 mg/ml [Benadryl 50 mg/ml] Med 09/18/22 15:46 Discontinued 50 mg IV STAT ONE Famotidine 20 mg Vial [Pepcid 20 MG VIAL] Med 09/18/22 18:07 Discontinued 20 mg IV .STK-MED ONE Famotidine 20 mg Vial [Pepcid 20 MG VIAL] Med 09/18/22 18:05 Discontinued 20 mg IV ONCE STA Insulin Glargine [Lantus Insulin] Med 09/19/22 09:00 Active 28 unit SQ AMINSULIN Insulin Lispro [Humalog] Med 09/19/22 07:30 Active 8 unit SQ AC Methylprednis Sod Succ 125 mg* [solu-MEDROL] Med 09/18/22 16:38 Discontinued 125 mg .ROUTE .STK-MED ONE Methylprednis Sod Succ 125 mg* [solu-MEDROL] Med 09/18/22 23:43 Discontinued 125 mg .ROUTE .STK-MED ONE Methylprednis Sod Succ 125 mg* [solu-MEDROL] Med 09/19/22 06:53 Discontinued 125 mg .ROUTE .STK-MED ONE Methylprednis Sod Succ 125 mg* [solu-MEDROL] 125 mg Med 09/18/22 16:30 Discontinued Water For Injection,Sterile [Sterile H2O 10 ml] 2 ml IV STAT Methylprednis Sod Succ 125 mg* [solu-MEDROL] 60 mg Med 09/19/22 00:00 Active Water For Injection,Sterile [Sterile H2O 10 ml] 2 ml IV Q6HT PANTOPRAZOLE 40 mg Tablet [Protonix 40MG Tablet] Med 09/18/22 22:00 Active 40 mg PO BID Ranolazine 500 MG [Ranexa 500 MG] Med 09/18/22 22:00 Active 500 mg PO BID Water For Injection,Sterile [Sterile H2O 10 ml] Med 09/18/22 16:38 Discontinued 10 ml IJ .STK-MED ONE Water For Injection,Sterile [Sterile H2O 10 ml] Med 09/18/22 23:43 Discontinued 10 ml IJ .STK-MED ONE Water For Injection,Sterile [Sterile H2O 10 ml] Med 09/19/22 06:53 Discontinued 10 ml IJ .STK-MED ONE Smoking Cessation Education ONCE RT 09/18/22 22:21 Active Code(s): E11.628 - TYPE 2 DIABETES MELLITUS WITH OTHER SKIN COMPLICATIONS; L08.9 - LOCAL INFECTION OF THE SKIN AND SUBCUTANEOUS TISSUE, UNSP (2) Occluded PICC line Current Visit: Yes Status: Acute Qualifiers: Encounter type: initial encounter Qualified Code(s): T82.898A - Other specified complication of vascular prosthetic devices, implants and grafts, in itial encounter Code(s): T82.898A - OTH COMPLICATION OF VASCULAR PROSTH DEV/GRFT, INIT (3) Pruritus Current Visit: Yes Status: Acute Code(s): L29.9 - PRURITUS, UNSPECIFIED
[2022-09-19] MEDS ORDERED: ZOFRAN ODT 4 MG PO PRN (11:10)
[2022-09-19] MEDS ORDERED: NON-FORMULARY ITEM (Evolocumab [Repatha Syringe] 140 MG/ML Syringe) SQ SCH (11:15)
[2022-09-19] MEDS ORDERED: NON-FORMULARY ITEM (Insulin Lispro 1 UNIT Ml) SQ SCH (11:30)
[2022-09-19] MEDS ORDERED: Cathflo Activase 2 MG IV ONE (12:00)
[2022-09-19] MEDS ORDERED: Ecotrin 325 MG PO SCH (12:00)
[2022-09-19] MEDS: PLAVIX Tablet PO SCH (12:20)
[2022-09-19] MEDS: ECOTRIN 81 MG PO SCH (12:20)
--- NOTE | 2022-09-19 12:37 | XRAY ---
Indication: PICC line placement. Comparison: February 25, 2015 Portable chest demonstrates new right arm PICC line with tip projecting over subclavian superior caval junction. Heart now enlarged with new left AICD. Lungs inflated and clear. Bony thorax intact.
[2022-09-19] MEDS ORDERED: MEDICATION INTERVENTION MC SCH (12:45)
[2022-09-19] MEDS: BUMEX 1 MG PO SCH (13:20)
[2022-09-19] MEDS: Effexor XR 75 MG PO SCH (13:21)
[2022-09-19] MEDS: SYNTHROID 75 MCG PO SCH (13:22)
[2022-09-19] MEDS: JARDIANCE PO SCH (13:23)
[2022-09-19] MEDS: ROCEPHIN 2 Gm-D5w 50ML BAG** 2 G/50 ML IVPB IV SCH (15:27)
[2022-09-19] MEDS: BENADRYL 50 MG/ML IV PRN (15:33)
[2022-09-19] MEDS ORDERED: HUMULIN R SQ PRN (19:54)
[2022-09-19] MEDS ORDERED: xanAX 0.25 MG PO SCH (20:00)
[2022-09-19] MEDS: ENTRESTO 49 MG-51 MG TABLET PO SCH (20:35)
[2022-09-19] MEDS ORDERED: NICODERM CQ 14 MG TOP SCH (21:00)
[2022-09-19] MEDS ORDERED: HUMALOG SQ PRN (21:12)
[2022-09-19] MEDS ORDERED: Zocor 10MG PO SCH (22:00)
[2022-09-19] MEDS ORDERED: NON-FORMULARY ITEM (Sacubitril/Valsartan [Entresto 24 Mg-26 Mg Tablet] 1 EACH Tablet) PO SCH (22:00)
[2022-09-20] MEDS: solu-MEDROL 60 MG, Sterile H2O 10 ml 2 ML IV SCH ×6 (01:19→11:56)
[2022-09-20] MEDS ORDERED: xanAX 0.25 MG PO PRN (06:45)
[2022-09-20] MEDS: Lantus Insulin SQ SCH (08:06)
[2022-09-20] MEDS: HUMALOG SQ SCH ×2 (08:06→11:55)
[2022-09-20] MEDS ORDERED: NON-FORMULARY ITEM (Atorvastatin Calcium [Lipitor] 10 MG Tablet) PO SCH (10:00)
[2022-09-20] MEDS ORDERED: NON-FORMULARY ITEM (Bumetanide [Bumetanide] 2 MG Tablet) PO SCH (10:00)
[2022-09-20] MEDS ORDERED: VENLAFAXINE HCL 75 MG PO SCH (10:00)
[2022-09-20] MEDS: BUMEX 1 MG PO SCH (10:06)
[2022-09-20] MEDS: ENTRESTO 49 MG-51 MG TABLET PO SCH (10:07)
[2022-09-20] MEDS: Coreg 3.125 MG PO SCH (10:07)
[2022-09-20] MEDS: JARDIANCE PO SCH (10:07)
[2022-09-20] MEDS: SYNTHROID 75 MCG PO SCH (10:07)
[2022-09-20] MEDS: Ranexa 500 MG PO SCH (10:07)
[2022-09-20] MEDS: Effexor XR 75 MG PO SCH (10:07)
[2022-09-20] MEDS: Protonix 40MG Tablet PO SCH (10:07)
[2022-09-20] MEDS: ROCEPHIN 2 Gm-D5w 50ML BAG** 2 G/50 ML IVPB IV SCH (10:08)
[2022-09-20] MEDS: BENADRYL 50 MG/ML IV PRN (10:10)
[2022-09-20 11:44] VITALS: BP 132/83; PULSE 67; O2SAT 96
[2022-09-20] MEDS: PLAVIX Tablet PO SCH (15:49)
[2022-09-20] MEDS: ECOTRIN 81 MG PO SCH (15:49)
[2022-09-20] MEDS ORDERED: NICODERM CQ 14 MG TOP SCH (22:00)
--- NOTE | 2022-09-21 08:02 | PCM.DS ---
Discharge Summary Date of Admission: 09/18/22 18:16 Admitting Physician: MILY DAVID Primary Care Provider: MILY DAVID Allergies Allergies ceftriaxone [From Rocephin] Allergy (Verified 09/18/22 18:08) hydrocodone Adverse Reaction (Mild, Verified 09/18/22 15:34) Itching Hospital Summary - Hospital Course Hospital Course: Chief Complaint Diagnosis PICC line is clogged Allergies Allergy/AdvReac Type Severity Reaction Status Date / Time ceftriaxone [From Rocephin] Allergy Verified 09/18/22 18:08 hydrocodone AdvReac Mild Itching Verified 09/18/22 15:34 Vital Signs (Last 24 hours) Temp Pulse Resp BP Pulse Ox 09/20/22 11:43 97.1 F 67 17 132/83 96 Current Medications Discontinued Medications Generic Name Dose Route Start Last Admin Trade Name Freq PRN Reason Stop Dose Admin Alprazolam 0.25 mg 09/19/22 20:00 09/19/22 21:19 Alprazolam 0.25 Mg Tablet PO 10/19/22 19:59 0.25 mg Q4H PRN FER Administration Alprazolam 0.25 mg 09/20/22 06:45 09/20/22 10:10 Alprazolam 0.25 Mg Tablet PO 10/19/22 19:59 0.25 mg Q4H PRN PRN Administration Alteplase, Recombinant 2 mg 09/19/22 12:00 09/19/22 16:19 Alteplase 2 Mg Vial IV 09/19/22 12:01 Not Given ONCE ONE Aspirin 81 mg 09/19/22 12:00 09/20/22 15:49 Aspirin 81 Mg Tablet.Ec PO 10/19/22 11:59 81 mg DAILY FER Administration Bumetanide 2 mg 09/19/22 11:45 09/20/22 10:06 Bumetanide 1 Mg Tablet PO 10/19/22 11:44 2 mg DAILY FER Administration Carvedilol 3.125 mg 09/18/22 22:00 09/20/22 10:07 Carvedilol 3.125 Mg Tablet PO 10/18/22 21:59 3.125 mg BID FER Administration Clopidogrel Bisulfate 75 mg 09/19/22 12:00 09/20/22 15:49 Clopidogrel Bisulfate 75 Mg Tablet PO 10/19/22 11:59 75 mg DAILY FER Administration Methylprednisolone Sodium 0 mg 09/18/22 16:30 09/18/22 16:39 Succinate 125 mg/ Sterile IV 09/18/22 16:31 125 mg Water 2 ml STAT ONE Administration Methylprednisolone Sodium 0 mg 09/19/22 00:00 09/20/22 11:56 Succinate 60 mg/ Sterile Water IV 10/19/22 00:00 Not Given 2 ml Q6HT FER Diphenhydramine HCl 50 mg 09/18/22 15:46 09/18/22 15:51 Diphenhydramine Hcl 50 Mg/Ml Vial IV 09/18/22 15:47 Not Given STAT ONE Diphenhydramine HCl Confirm 09/18/22 15:46 Diphenhydramine Hcl 50 Mg/Ml Vial Administered 09/18/22 15:47 Dose 50 mg .ROUTE .STK-MED ONE Diphenhydramine HCl 50 mg 09/18/22 18:22 09/20/22 10:10 Diphenhydramine Hcl 50 Mg/Ml Vial IV 10/18/22 18:21 50 mg Q6H PRN PRN Administration ITCHING Empagliflozin 10 mg 09/19/22 12:00 09/20/22 10:07 Empagliflozin 10 Mg Tablet PO 10/19/22 11:59 10 mg DAILY FER Administration Famotidine 20 mg 09/18/22 18:05 09/18/22 18:07 Famotidine 20 Mg/1 Vial IV 09/18/22 18:06 20 mg ONCE STA Administration Famotidine Confirm 09/18/22 18:07 Famotidine 20 Mg/1 Vial Administered 09/18/22 18:08 Dose 20 mg IV .STK-MED ONE Ceftriaxone Sodium/Dextrose 2 g in 50 mls @ 100 mls/hr 09/19/22 15:00 09/20/22 10:08 Rocephin 2 Gm-D5w 50ml Bag IV 09/22/22 14:59 100 mls/hr Q24H10 FER Administration Insulin Glargine 28 unit 09/19/22 09:00 09/20/22 08:06 Insulin Glargine 1 Unit SQ 10/19/22 08:59 28 unit AMINSULIN FER Administration Insulin Human Lispro 8 unit 09/19/22 07:30 09/20/22 11:55 Insulin Lispro 1 Unit SQ 10/19/22 07:29 8 unit AC FER Administration Insulin Human Lispro 0 unit 09/19/22 21:12 09/19/22 21:19 Insulin Lispro 1 Unit SQ 10/19/22 21:11 10 unit UD PRN Administration HYPERGLYCEMIA Insulin Human Regular 0 unit 09/19/22 19:54 Insulin Regular, Human 1 Unit SQ 10/19/22 19:53 UD PRN HYPERGLYCEMIA Levothyroxine Sodium 75 mcg 09/19/22 12:00 09/20/22 10:07 Levothyroxine Sodium 75 Mcg Tablet PO 10/19/22 11:59 75 mcg DAILY FER Administration Methylprednisolone Sodium Succinate Confirm 09/18/22 16:38 Methylprednis Sod Succ 125 Mg/2 Ml Vial Administered 09/18/22 16:39 Dose 125 mg .ROUTE .STK-MED ONE Methylprednisolone Sodium Succinate Confirm 09/18/22 23:43 Methylprednis Sod Succ 125 Mg/2 Ml Vial Administered 09/18/22 23:44 Dose 125 mg .ROUTE .STK-MED ONE Methylprednisolone Sodium Succinate Confirm 09/19/22 06:53 Methylprednis Sod Succ 125 Mg/2 Ml Vial Administered 09/19/22 06:54 Dose 125 mg .ROUTE .STK-MED ONE Miscellaneous Information 0 each 09/19/22 12:45 Medication Intervention 1 Each Each 10/19/22 12:44 .RN TO CHECK FER Nicotine 14 mg 09/19/22 21:00 09/20/22 01:17 Nicotine 14 Mg/Patch Patch TOP 10/19/22 20:59 Not Given Q24H FER Nicotine 14 mg 09/20/22 22:00 Nicotine 14 Mg/Patch Patch TOP 10/19/22 20:59 HS [facility] Non-Formulary Medication 8 unit 09/19/22 11:30 Insulin Lispro SQ 10/19/22 11:29 AC FER Ondansetron HCl 4 mg 09/19/22 11:10 Zofran 4 Mg/Udtablet Orally Disintegrating PO 10/19/22 11:09 Q6H PRN PRN NAUSEA Pantoprazole Sodium 40 mg 09/18/22 22:00 09/20/22 10:07 Protonix (Pantoprazole) 40 Mg Tablet PO 10/18/22 21:59 40 mg BID FER Administration Ranolazine 500 mg 09/18/22 22:00 09/20/22 10:07 Ranolazine 500 Mg Tab.Sr.12h PO 10/18/22 21:59 500 mg BID FER Administration Sacubitril/Valsartan 0.5 tablet 09/19/22 22:00 09/20/22 10:07 Sacubitril/Valsartan 1 Tablet Tablet PO 10/19/22 21:59 0.5 tablet BID FER Administration Simvastatin 10 mg 09/19/22 22:00 09/19/22 20:35 Simvastatin 10 Mg Tablet PO 10/19/22 21:59 10 mg HS FER Administration Sterile Water Confirm 09/18/22 16:38 Water For Injection,Sterile 10 Ml Vial Administered 09/18/22 16:39 Dose 10 ml IJ .STK-MED ONE Sterile Water Confirm 09/18/22 23:43 Water For Injection,Sterile 10 Ml Vial Administered 09/18/22 23:44 Dose 10 ml IJ .STK-MED ONE Sterile Water Confirm 09/19/22 06:53 Water For Injection,Sterile 10 Ml Vial Administered 09/19/22 06:54 Dose 10 ml IJ .STK-MED ONE Venlafaxine HCl 75 mg 09/19/22 12:00 09/20/22 10:07 Venlafaxine Hcl 75 Mg Extended Release Capsule PO 10/19/22 11:59 75 mg DAILY FER Administration Intake & Output (Last 24 hours) 09/18/22 09/19/22 09/20/22 09/21/22 11:59 11:59 11:59 11:59 Intake Total 640 1880 120 Output Total 1000 Balance 640 880 120 Weight 128.9 kg Laboratory Results (Last 24 hours) 09/20/22 11:39 POC Glucometer 209 H Orders (Last 24 hours) Category Date Time Status Miscellaneous Nursing Order ROUTINE Care 09/20/22 12:50 Completed Miscellaneous Nursing Order ROUTINE Care 09/20/22 13:34 Completed POCT Glucose Check ACHS Care 09/20/22 07:24 Completed POCT GLUCOSE Stat Lab 09/20/22 07:09 Completed POCT GLUCOSE Stat Lab 09/20/22 11:39 Completed Nicotine 14 mg [Nicoderm Cq 14 mg] Med 09/20/22 22:00 Discontinued 14 mg TOP HS Patient Care Notes (Last 24 hours) 09/20/22 15:39 Nursing Note by Taylor Silverio FAXED DISCHARGE INSTRUCTIONS TO A. CALLED TATYANA AT [facility] TO REPORT DISCHARGE INSTRUCTIONS BUT SHE DID NOT ANSWER. LEFT A DETAILED VOICEMAIL AND REVIEWED DISCHARGE INSTRUCTIONS. Initialized on 09/20/22 15:39 - END OF NOTE 09/20/22 15:04 Nursing Note by Taylor Silverio IV TO LEFT UPPER ARM 4F- 10CM IN LENGTH PLACED BY ANA MARIA CARNES ONCOLOGY SOCIAL WORKER SUCCESSFUL WITH 1 ATTEMPT. PATIENT TOLERATED PROCEDURE WITHOUT COMPLAINT. IV WILL NEED TO BE D/C'D ON OR BEFORE October. [facility] NOTIFIED. CLARIFIED WITH ANA MARIA CARNES THAT IV DOES NOT NEED TO BE FLUSHED WITH HEPARIN. IV IS THE BE FLUSHED WITH NORMAL SALINE SYRINGE BEFORE AND AFTER ANTIBIOTIC ADMINISTRATION AND EVERY 8 HRS WHEN NOT IN USE. PATIENT EDUCATED ON FLUSHING GUIDELINES AND DATE WHEN IV NEEDS TO BE D/C'D. PATIENT STATES SHE DOES NOT NEED ANY SALINE SYRINGES AT D/C THAT SHE WAS PLENTY AT HOME AND PATIENT STATES SHE WILL UPDATE DR. DELGADILLO AT HE NEXT APPOINTMENT ON 09/26/22 THAT SHE NEEDS AN ORDER FOR OUTPATIENT PICC LINE PLACEMENT TO BE ABLE TO COMPLETE 6 WEEKS OF ANTIBIOTIC THERAPY. Addendum entered by Taylor Silverio RN 09/20/22 15:18: VERIFIED THAT LABS CAN BE DRAWN FROM IV. Initialized on 09/20/22 15:04 - END OF NOTE 09/20/22 13:59 Case Management Note by Brenda Bar PER NURSE- PICC TEAM NO LONGER COMING- ANESTHESIA WILL PLACE A MIDLINE LATER THIS AFTERNOON. S/W TATYANA AT [facility]- THEY HAVE ROUTINE MIDLINE CARE ORDERS BUT WILL NEED TO KNOW IF HEPARIN FLUSHES ARE REQUIRED IN ADDITION TO SALINE AND IF PHYSICIAN OKAYED FOR LABS CAN BE DRAWN. THIS INFORMATION (ALONG WITH MIDLINE PLACEMENT INFO) NEEDS FAXED TO [facility] AND CALLED TO THE COMMUNITY CASE MANAGER NURSE FOR [facility] SO THEY CAN ADDRESS ANY CHANGES BEFORE PATIENT'S NEXT INFUSION DUE 09/21/22. PRIMARY RN NOTIFIED Initialized on 09/20/22 13:59 - END OF NOTE 09/20/22 13:33 Nursing Note by Taylor Silverio RECEIVED CALL FROM [facility] STATING THEY WILL NOT BE ABLE TO COME TODAY TO PLACE PICC LINE. UPDATED DR. DAVID. RECEIVED ORDER FOR MIDLINE PLACEMENT IN HOUSE. Initialized on 09/20/22 13:33 - END OF NOTE 09/20/22 12:22 Nursing Note by Taylor Silverio RECEIVED CALL FROM [facility] STATING THEY WOULD BE HERE EARLY AFTERNOON FOR PICC LINE PLACEMENT. Initialized on 09/20/22 12:22 - END OF NOTE 09/20/22 12:19 Nursing Note by Taylor Silverio PICC LINE TO RIGHT UPPER ARM D/C'D AT THIS TIME. PATIENT TOLERATED WITHOUT COMPLAINTS. CATHETER 36 CM IN LENGTH- TIP INTACT. NO BLEEDING NOTED UPON REMOVAL - PRESSURE DRESSING IN PLACE. Initialized on 09/20/22 12:19 - END OF NOTE 09/20/22 11:47 Case Management Note by Brenda Bar PATIENT CONTINUES TO DENY ANY NEW NEEDS REGARDING DC- PATIENT ALREADY HAS [facility] IN [facility]. THEY WILL NEED FAXED THE INFORMATION ON THE NEW PICC LINE TO BE SURE THEY UPDATE PATIENT ON ANY CHANGES IN CARE. FAX # [phone] Initialized on 09/20/22 11:47 - END OF NOTE 09/20/22 09:40 Nursing Note by Taylor Silverio ATTEMPTED TO CALL [facility] AT THIS TIME TO GET UPDATE ON WHEN THEY WILL ARRIVE FOR PICC LINE PLACEMENT. NO ANSWER BUT LEFT MESSAGE WITH CALLBACK INFORMATION. NOTIFIED SAND SCREENER OPERATOR AND HOUSE STATES HE WILL CHECK WITH OR TO SEE IF ANYONE IN HOUSE IS AVAILABLE TO PLACE PICC LINE TODAY. UPDATED DR. DAVID AND HE STATES ONCE PICC LINE IS PLACED PATIENT IS OK TO DISCHARGE HOME. Initialized on 09/20/22 09:40 - END OF NOTE - Vitals & Intake/Output Vital Signs: Vital Signs Temperature 97.1 F 09/20/22 11:43 Pulse Rate 67 09/20/22 11:43 Respiratory Rate 17 09/20/22 11:43 Blood Pressure 132/83 09/20/22 11:43 O2 Sat by Pulse Oximetry 96 09/20/22 11:43 Intake & Output: Intake & Output 09/18/22 09/19/22 09/20/22 09/21/22 11:59 11:59 11:59 11:59 Intake Total 640 1880 120 Output Total 1000 Balance 640 880 120 Weight 128.9 kg - Lab Result Diagrams: 09/19/22 04:50 09/19/22 04:50 Lab Results-Last 24 Hrs: Lab Results-Last 24 Hours 09/20/22 Range/Units 11:39 POC Glucometer 209 H (74 to 106) mg/dL Micro Results-Entire Visit: Accuchecks Date 09/20/22 Time 11:43 - Radiology Exams Ordered Rad Exams-Entire Visit: Radiology Procedures Category Date Time Status CHEST 1 VIEW (PORTABLE) Routine Exams 09/19/22 12:01 Completed - Procedures and Test Procedures and Tests throughout Hospitalization: Therapy Orders & Screens 09/18/22 22:21 Smoking Cessation Education ONCE Comment: Diagnosis: Malfunctioning PICC line, pruritus Smoking Status: Current every day smoker How long have you smoked: 25 years Have you smoked in the past 12 months: Yes Approximately how many cigarettes per day: 1PPD Do you dip or chew tobacco: No Discharge Exam General Appearance: no apparent distress, alert Neurologic Exam: alert, oriented x 3, cooperative, normal mood/affect, nml cerebellar function, sensation nml, No motor deficits Eye Exam: PERRL, EOMI, eyes nml inspection Ears, Nose, Throat Exam: normal ENT inspection, pharynx normal, moist mucous membranes Neck Exam: normal inspection, non-tender, supple, full range of motion Respiratory Exam: normal breath sounds, lungs clear, No respiratory distress Cardiovascular Exam: regular rate/rhythm, normal heart sounds Gastrointestinal/Abdomen Exam: soft, No tenderness, No mass Pelvic Exam: deferred Rectal Exam: deferred Back Exam: normal inspection, normal range of motion, No CVA tenderness, No vertebral tenderness Extremity Exam: normal inspection, normal range of motion Skin Exam: normal color, warm, dry Final Diagnosis/Problem List - Final Discharge Diagnosis/Problem (1) Diabetic foot infection Status: Acute Assessment & Plan: Chief Complaint Diagnosis PICC line is clogged Allergies Allergy/AdvReac Type Severity Reaction Status Date / Time ceftriaxone [From Rocephin] Allergy Verified 09/18/22 18:08 hydrocodone AdvReac Mild Itching Verified 09/18/22 15:34 Vital Signs (Last 24 hours) Temp Pulse Resp BP Pulse Ox 09/20/22 11:43 97.1 F 67 17 132/83 96 Current Medications Discontinued Medications Generic Name Dose Route Start Last Admin Trade Name Freq PRN Reason Stop Dose Admin Alprazolam 0.25 mg 09/19/22 20:00 09/19/22 21:19 Alprazolam 0.25 Mg Tablet PO 10/19/22 19:59 0.25 mg Q4H PRN FER Administration Alprazolam 0.25 mg 09/20/22 06:45 09/20/22 10:10 Alprazolam 0.25 Mg Tablet PO 10/19/22 19:59 0.25 mg Q4H PRN PRN Administration Alteplase, Recombinant 2 mg 09/19/22 12:00 09/19/22 16:19 Alteplase 2 Mg Vial IV 09/19/22 12:01 Not Given ONCE ONE Aspirin 81 mg 09/19/22 12:00 09/20/22 15:49 Aspirin 81 Mg Tablet.Ec PO 10/19/22 11:59 81 mg DAILY FER Administration Bumetanide 2 mg 09/19/22 11:45 09/20/22 10:06 Bumetanide 1 Mg Tablet PO 10/19/22 11:44 2 mg DAILY FER Administration Carvedilol 3.125 mg 09/18/22 22:00 09/20/22 10:07 Carvedilol 3.125 Mg Tablet PO 10/18/22 21:59 3.125 mg BID FER Administration Clopidogrel Bisulfate 75 mg 09/19/22 12:00 09/20/22 15:49 Clopidogrel Bisulfate 75 Mg Tablet PO 10/19/22 11:59 75 mg DAILY FER Administration Methylprednisolone Sodium 0 mg 09/18/22 16:30 09/18/22 16:39 Succinate 125 mg/ Sterile IV 09/18/22 16:31 125 mg Water 2 ml STAT ONE Administration Methylprednisolone Sodium 0 mg 09/19/22 00:00 09/20/22 11:56 Succinate 60 mg/ Sterile Water IV 10/19/22 00:00 Not Given 2 ml Q6HT FER Diphenhydramine HCl 50 mg 09/18/22 15:46 09/18/22 15:51 Diphenhydramine Hcl 50 Mg/Ml Vial IV 09/18/22 15:47 Not Given STAT ONE Diphenhydramine HCl Confirm 09/18/22 15:46 Diphenhydramine Hcl 50 Mg/Ml Vial Administered 09/18/22 15:47 Dose 50 mg .ROUTE .STK-MED ONE Diphenhydramine HCl 50 mg 09/18/22 18:22 09/20/22 10:10 Diphenhydramine Hcl 50 Mg/Ml Vial IV 10/18/22 18:21 50 mg Q6H PRN PRN Administration ITCHING Empagliflozin 10 mg 09/19/22 12:00 09/20/22 10:07 Empagliflozin 10 Mg Tablet PO 10/19/22 11:59 10 mg DAILY FER Administration Famotidine 20 mg 09/18/22 18:05 09/18/22 18:07 Famotidine 20 Mg/1 Vial IV 09/18/22 18:06 20 mg ONCE STA Administration Famotidine Confirm 09/18/22 18:07 Famotidine 20 Mg/1 Vial Administered 09/18/22 18:08 Dose 20 mg IV .STK-MED ONE Ceftriaxone Sodium/Dextrose 2 g in 50 mls @ 100 mls/hr 09/19/22 15:00 09/20/22 10:08 Rocephin 2 Gm-D5w 50ml Bag IV 09/22/22 14:59 100 mls/hr Q24H10 FER Administration Insulin Glargine 28 unit 09/19/22 09:00 09/20/22 08:06 Insulin Glargine 1 Unit SQ 10/19/22 08:59 28 unit AMINSULIN FER Administration Insulin Human Lispro 8 unit 09/19/22 07:30 09/20/22 11:55 Insulin Lispro 1 Unit SQ 10/19/22 07:29 8 unit AC FER Administration Insulin Human Lispro 0 unit 09/19/22 21:12 09/19/22 21:19 Insulin Lispro 1 Unit SQ 10/19/22 21:11 10 unit UD PRN Administration HYPERGLYCEMIA Insulin Human Regular 0 unit 09/19/22 19:54 Insulin Regular, Human 1 Unit SQ 10/19/22 19:53 UD PRN HYPERGLYCEMIA Levothyroxine Sodium 75 mcg 09/19/22 12:00 09/20/22 10:07 Levothyroxine Sodium 75 Mcg Tablet PO 10/19/22 11:59 75 mcg DAILY FER Administration Methylprednisolone Sodium Succinate Confirm 09/18/22 16:38 Methylprednis Sod Succ 125 Mg/2 Ml Vial Administered 09/18/22 16:39 Dose 125 mg .ROUTE .STK-MED ONE Methylprednisolone Sodium Succinate Confirm 09/18/22 23:43 Methylprednis Sod Succ 125 Mg/2 Ml Vial Administered 09/18/22 23:44 Dose 125 mg .ROUTE .STK-MED ONE Methylprednisolone Sodium Succinate Confirm 09/19/22 06:53 Methylprednis Sod Succ 125 Mg/2 Ml Vial Administered 09/19/22 06:54 Dose 125 mg .ROUTE .STK-MED ONE Miscellaneous Information 0 each 09/19/22 12:45 Medication Intervention 1 Each Each 10/19/22 12:44 .RN TO CHECK FER Nicotine 14 mg 09/19/22 21:00 09/20/22 01:17 Nicotine 14 Mg/Patch Patch TOP 10/19/22 20:59 Not Given Q24H FER Nicotine 14 mg 09/20/22 22:00 Nicotine 14 Mg/Patch Patch TOP 10/19/22 20:59 HS FER Non-Formulary Medication 8 unit 09/19/22 11:30 Insulin Lispro SQ 10/19/22 11:29 AC FER Ondansetron HCl 4 mg 09/19/22 11:10 Zofran 4 Mg/Udtablet Orally Disintegrating PO 10/19/22 11:09 Q6H PRN PRN NAUSEA Pantoprazole Sodium 40 mg 09/18/22 22:00 09/20/22 10:07 Protonix (Pantoprazole) 40 Mg Tablet PO 10/18/22 21:59 40 mg BID FER Administration Ranolazine 500 mg 09/18/22 22:00 09/20/22 10:07 Ranolazine 500 Mg Tab.Sr.12h PO 10/18/22 21:59 500 mg BID FER Administration Sacubitril/Valsartan 0.5 tablet 09/19/22 22:00 09/20/22 10:07 Sacubitril/Valsartan 1 Tablet Tablet PO 10/19/22 21:59 0.5 tablet BID FER Administration Simvastatin 10 mg 09/19/22 22:00 09/19/22 20:35 Simvastatin 10 Mg Tablet PO 10/19/22 21:59 10 mg HS FER Administration Sterile Water Confirm 09/18/22 16:38 Water For Injection,Sterile 10 Ml Vial Administered 09/18/22 16:39 Dose 10 ml IJ .STK-MED ONE Sterile Water Confirm 09/18/22 23:43 Water For Injection,Sterile 10 Ml Vial Administered 09/18/22 23:44 Dose 10 ml IJ .STK-MED ONE Sterile Water Confirm 09/19/22 06:53 Water For Injection,Sterile 10 Ml Vial Administered 09/19/22 06:54 Dose 10 ml IJ .STK-MED ONE Venlafaxine HCl 75 mg 09/19/22 12:00 09/20/22 10:07 Venlafaxine Hcl 75 Mg Extended Release Capsule PO 10/19/22 11:59 75 mg DAILY FER Administration Intake & Output (Last 24 hours) 09/18/22 09/19/22 09/20/22 09/21/22 11:59 11:59 11:59 11:59 Intake Total 640 1880 120 Output Total 1000 Balance 640 880 120 Weight 128.9 kg Laboratory Results (Last 24 hours) 09/20/22 11:39 POC Glucometer 209 H Orders (Last 24 hours) Category Date Time Status Miscellaneous Nursing Order ROUTINE Care 09/20/22 12:50 Completed Miscellaneous Nursing Order ROUTINE Care 09/20/22 13:34 Completed POCT Glucose Check ACHS Care 09/20/22 07:24 Completed POCT GLUCOSE Stat Lab 09/20/22 07:09 Completed POCT GLUCOSE Stat Lab 09/20/22 11:39 Completed Nicotine 14 mg [Nicoderm Cq 14 mg] Med 09/20/22 22:00 Discontinued 14 mg TOP HS Patient Care Notes (Last 24 hours) 09/20/22 15:39 Nursing Note by Taylor Silverio FAXED DISCHARGE INSTRUCTIONS TO A. CALLED TATYANA AT [facility] TO REPORT DISCHARGE INSTRUCTIONS BUT SHE DID NOT ANSWER. LEFT A DETAILED VOICEMAIL AND REVIEWED DISCHARGE INSTRUCTIONS. Initialized on 09/20/22 15:39 - END OF NOTE 09/20/22 15:04 Nursing Note by Taylor Silverio IV TO LEFT UPPER ARM 4F- 10CM IN LENGTH PLACED BY ANA MARIA CARNES ONCOLOGY SOCIAL WORKER SUCCESSFUL WITH 1 ATTEMPT. PATIENT TOLERATED PROCEDURE WITHOUT COMPLAINT. IV WILL NEED TO BE D/C'D ON OR BEFORE October. [facility] NOTIFIED. CLARIFIED WITH ANA MARIA CARNES THAT IV DOES NOT NEED TO BE FLUSHED WITH HEPARIN. IV IS THE BE FLUSHED WITH NORMAL SALINE SYRINGE BEFORE AND AFTER ANTIBIOTIC ADMINISTRATION AND EVERY 8 HRS WHEN NOT IN USE. PATIENT EDUCATED ON FLUSHING GUIDELINES AND DATE WHEN IV NEEDS TO BE D/C'D. PATIENT STATES SHE DOES NOT NEED ANY SALINE SYRINGES AT D/C THAT SHE WAS PLENTY AT HOME AND PATIENT STATES SHE WILL UPDATE DR. DELGADILLO AT HE NEXT APPOINTMENT ON 09/26/22 THAT SHE NEEDS AN ORDER FOR OUTPATIENT PICC LINE PLACEMENT TO BE ABLE TO COMPLETE 6 WEEKS OF ANTIBIOTIC THERAPY. Addendum entered by Taylor Silverio RN 09/20/22 15:18: VERIFIED THAT LABS CAN BE DRAWN FROM IV. Initialized on 09/20/22 15:04 - END OF NOTE 09/20/22 13:59 Case Management Note by Brenda Bar PER NURSE- PICC TEAM NO LONGER COMING- ANESTHESIA WILL PLACE A MIDLINE LATER THIS AFTERNOON. S/W TATYANA AT [facility]- THEY HAVE ROUTINE MIDLINE CARE ORDERS BUT WILL NEED TO KNOW IF HEPARIN FLUSHES ARE REQUIRED IN ADDITION TO SALINE AND IF PHYSICIAN OKAYED FOR LABS CAN BE DRAWN. THIS INFORMATION (ALONG WITH MIDLINE PLACEMENT INFO) NEEDS FAXED TO [facility] AND CALLED TO THE COMMUNITY CASE MANAGER NURSE FOR [facility] SO THEY CAN ADDRESS ANY CHANGES BEFORE PATIENT'S NEXT INFUSION DUE 09/21/22. PRIMARY RN NOTIFIED Initialized on 09/20/22 13:59 - END OF NOTE 09/20/22 13:33 Nursing Note by Taylor Silverio RECEIVED CALL FROM [facility] STATING THEY WILL NOT BE ABLE TO COME TODAY TO PLACE PICC LINE. UPDATED DR. DAVID. RECEIVED ORDER FOR MIDLINE PLACEMENT IN HOUSE. Initialized on 09/20/22 13:33 - END OF NOTE 09/20/22 12:22 Nursing Note by Taylor Silverio RECEIVED CALL FROM [facility] STATING THEY WOULD BE HERE EARLY AFTERNOON FOR PICC LINE PLACEMENT. Initialized on 09/20/22 12:22 - END OF NOTE 09/20/22 12:19 Nursing Note by Taylor Silverio PICC LINE TO RIGHT UPPER ARM D/C'D AT THIS TIME. PATIENT TOLERATED WITHOUT COMPLAINTS. CATHETER 36 CM IN LENGTH- TIP INTACT. NO BLEEDING NOTED UPON REMOVAL - PRESSURE DRESSING IN PLACE. Initialized on 09/20/22 12:19 - END OF NOTE 09/20/22 11:47 Case Management Note by Brenda Bar PATIENT CONTINUES TO DENY ANY NEW NEEDS REGARDING DC- PATIENT ALREAD[facility] HAS [facility] IN [facility]. THEY WILL NEED FAXED THE INFORMATION ON THE NEW PICC LINE TO BE SURE THEY UPDATE PATIENT ON ANY CHANGES IN CARE. FAX # [phone] Initialized on 09/20/22 11:47 - END OF NOTE 09/20/22 09:40 Nursing Note by Taylor Sivlerio ATTEMPTED TO CALL [facility] AT THIS TIME TO GET UPDATE ON WHEN THEY WILL ARRIVE FOR PICC LINE PLACEMENT. NO ANSWER BUT LEFT MESSAGE WITH CALLBACK INFORMATION. NOTIFIED SAND SCREENER OPERATOR AND HOUSE STATES HE WILL CHECK WITH OR TO SEE IF ANYONE IN HOUSE IS AVAILABLE TO PLACE PICC LINE TODAY. UPDATED DR. DAVID AND HE STATES ONCE PICC LINE IS PLACED PATIENT IS OK TO DISCHARGE HOME. Initialized on 09/20/22 09:40 - END OF NOTE Code(s): E11.628 - TYPE 2 DIABETES MELLITUS WITH OTHER SKIN COMPLICATIONS; L08.9 - LOCAL INFECTION OF THE SKIN AND SUBCUTANEOUS TISSUE, UNSP (2) Occluded PICC line Status: Acute Code(s): T82.898A - OTH COMPLICATION OF VASCULAR PROSTH DEV/WILL INRANDALL (3) Pruritus Status: Acute Code(s): L29.9 - PRURITUS, UNSPECIFIED - Discharge Discharge Date: 09/20/22 Disposition: Home, Self-Care Condition: Stable Prescriptions: Continue Empagliflozin [Jardiance] 10 mg PO DAILY Levothyroxine Sodium 75 Mcg [Synthroid 75 Mcg] 75 mcg PO DAILY Carvedilol 3.125 mg [Coreg 3.125 MG] 3.125 mg PO BID Aspirin EC 325 mg [Ecotrin 325 MG] 81 mg PO DAILY Venlafaxine HCl ER 75 mg [Effexor XR 75 MG] 75 mg PO DAILY Atorvastatin Calcium [Lipitor] 10 mg PO DAILY Clopidogrel Bisulfate [PLAVIX Tablet] 75 mg PO DAILY Ranolazine [Ranolazine ER] 500 mg PO BID Sacubitril/Valsartan [Entresto 24 mg-26 mg Tablet] 1 each PO BID Evolocumab [Repatha Syringe] 140 mg SQ WEEKLY Insulin Lispro [Humalog] 8 unit SQ AC Omeprazole 20 mg PO BID Ondansetron ODT 4 MG [Zofran Odt 4 mg] 4 mg PO Q6H PRN PRN PRN Reason: Nausea Insulin Glargine,Hum.rec.anlog [Tutu Hobbs] 35 unit SQ DAILY Bumetanide 1 tab PO DAILY Instructions: Foot Care for Diabetics, Midline IV Catheter (DC) Additional Instructions: MIDLINE TO LEFT UPPER ARM PLACED ON 09/20/22 AND SHOULD BE REMOVED ON OR BEFORE OCTOBER 18, 2022. NOTIFY DR. DELGADILLO AT YOUR NEXT APPOINTMENT ON 09/26/22 THAT YOU WILL NEED SCHEDULED FOR AN OUTPATIENT PICC LINE PLACEMENT TO CONTINUE WITH OUTPATIENT ANTIBIOTIC THERAPY. MIDLINE SHOULD BE FLUSHED WITH NORMAL SALINE SYRINGE BEFORE AND AFTER ANTIBIOTIC ADMINISTRATION AND EVERY 8 HOURS WHEN NOT IN USE. OK TO DRAW LABS FROM SITE. YOU RECEIVED YOUR DAILY DOSE OF CEFTRIAXONE ON 09/20/22 PRIOR TO DISCHARGE FROM [facility]. Follow up with: MILY DAVID MD [Primary Care Provider] - 09/27/22 1:30 pm ([place] [facility]) Forms: Discharge Instructions
== END 2022-09-20 15:59 | disposition home health service (06) ==
LOC: ED 15:16 → MED SURG 18:16
PROVIDERS: ADMIT General Practice; ATTEND General Practice
DX: E11.69 Type 2 diabetes mellitus with other specified complication (principal); M86.9 Osteomyelitis, unspecified; T82.898A Other specified complication of vascular prosthetic devices, implants and grafts, initial encounter; L29.9 Pruritus, unspecified; E03.9 Hypothyroidism, unspecified; I25.2 Old myocardial infarction; Z79.899 Other long term (current) drug therapy; Z20.828 Contact with and (suspected) exposure to other viral communicable diseases; Z79.01 Long term (current) use of anticoagulants; Z72.0 Tobacco use
CPT/HCPCS: 0241U; 36000; 36410; 36415; 71045; 80053; 82947; 85025; 96374; 96375; 99284; G0378; 76942; J0696; J1200; J1817; J2930; A9270-GY